=== PATIENT | male | born 2000 | race Caucasian/White ===

== ENCOUNTER 2024-02-08 12:18 | Day surgery (SDC) | payer OTHER ==
[~2024-02-08] VITALS: Ht 185.4 cm; Wt 70.7 kg
[~2024-02-08 12:18] MED LIST: LR 1,000 ML IV SCH; Ondansetron 4 MG/2 ML VIAL IV PRN
[2024-02-08 13:07] VITALS: BP 115/64; PULSE 61; TEMP 97.7
--- NOTE | 2024-02-08 13:08 | NUR ---
Pt admitted to [facility]. Admission assessments complete. Consent signed. at bedside. Failed IV attempt to RFA, 20G IV inserted into RFA on second attempt, LR infusing without difficulty. Glasses on. Medications, allergies, and pharmacy confirmed. Questions answered. Call light within reach.
[2024-02-08] MEDS ORDERED: Lidocaine PF 2% (20 MG/ML) 5 ML VIAL ONE (13:18)
[2024-02-08 13:50] VITALS: BP 113/76; PULSE 74; TEMP 97.2
--- NOTE | 2024-02-08 13:50 | NUR ---
PATIENT AMBULATED TO CHAIR WITH STEADY GAIT, ASSIST OF 2. ALERT AND AWAKE. DENIES PAIN, NAUSEA AND SHORTNESS OF BREATH. BREATHING REGULAR AND UNLABORED ON ROOM AIR. SKIN WARM AND DRY. IV IN PLACE. NURSE HANDOFF COMPLETED IN ROOM. SEE CHART FOR VITAL SIGNS. PATIENT HAD APPLE JUICE, NO DYSPHAGIA. DECLINED FOOD AND ANY ADDITIONAL NEEDS. CALL LIGHT IN REACH. SPOUSE PRESENT IN ROOM.
[2024-02-08 14:00] VITALS: BP 123/74; PULSE 78
[2024-02-08 14:15] VITALS: BP 120/75; PULSE 82
[2024-02-08 14:30] VITALS: BP 114/74; PULSE 63
--- NOTE | 2024-02-08 14:50 | NUR ---
1431: MET WITH PATIENT AND SPOUSE IN ROOM TO DISCUSS PROCEDURE. 1440: DISCHARGE TEACHING COMPLETED WITH PRINTED EDUCATION AND INSTRUCTIONS SENT HOME WITH PATIENT. PATIENT VERBALIZED UNDERSTANDING OF TEACHING. 1448: IV REMOVED. GAUZE AND COBAN PLACED OVER SITE. 1450: PATIENT DISCHARGED HOME WITH [facility]SP[facility].
== END 2024-02-08 14:50 | disposition home or self-care (01) ==
LOC: SDCO 12:18
DX: K21.00 Gastro-esophageal reflux disease with esophagitis, without bleeding (principal); K31.89 Other diseases of stomach and duodenum; J98.4 Other disorders of lung; K22.89 Other specified disease of esophagus
CPT/HCPCS: J2704